=== PATIENT | female | born 1975 | race Caucasian/White ===

== ENCOUNTER 2017-02-16 14:45 | Outpatient (CLI) | payer OTHER | END 2017-02-16 14:46 | disposition home or self-care (01) | LOC: SC 14:45 | PROVIDERS: ATTEND Specialist | DX: G47.30 Sleep apnea, unspecified (principal); R51 Headache; R53.83 Other fatigue; E66.9 Obesity, unspecified; R61 Generalized hyperhidrosis; R06.83 Snoring; G47.00 Insomnia, unspecified | CPT/HCPCS: 99204; 99212 ==

== ENCOUNTER 2017-04-05 19:20 | Outpatient (CLI) | payer OTHER | END 2017-04-05 19:21 | disposition home or self-care (01) | LOC: SC 19:20 | PROVIDERS: ATTEND Specialist | DX: R06.83 Snoring (principal); G47.61 Periodic limb movement disorder | CPT/HCPCS: 95810 ==

== ENCOUNTER 2017-04-21 08:58 | Outpatient (CLI) | payer OTHER | END 2017-04-21 08:59 | disposition home or self-care (01) | LOC: SC 08:58 | PROVIDERS: ATTEND Nurse Practitioner Family | DX: R06.83 Snoring (principal); G47.61 Periodic limb movement disorder; G47.00 Insomnia, unspecified | CPT/HCPCS: 99212; 99214 ==

== ENCOUNTER 2018-03-07 17:34 | Emergency (ER) | payer OTHER ==
--- NOTE | 2018-03-07 18:19 | ED Physician Documentation ---
PD HPI ABD PAIN - Stated complaint Stated Complaint: NAUSEA/AB PX - Chief complaint Chief Complaint: Abd Pain - History obtained from History obtained from: Patient - History of Present Illness Timing - onset: How many hours ago (1), Today Timing - details: Abrupt onset, Now resolved (she was just standing at home and felt an abrupt cramping severa pain in umbilical area that progresses to whole abd, associated with nausea. Unrelented pain so had start driving to ER. She says the pain suddenly improved while enroute. She sayd during the pain, she felt that her known hernia was firm, tender and enlarged and she had not felt it like that before.) Quality: Aching, Fullness/distended, Pain Location: All over / everywhere, Periumbilical Radiation: Lower back. No: Chest Improved by: No: Position Worsened by: Palpation. No: Breathing, Position Associated symptoms: Nausea. No: Fever, Diarrhea Similar symptoms before: Has not had sx before (has had the hernia for awhile but no episodes like this in the past, some time of brief cramps for a minute or so.) Recently seen: Not recently seen Review of Systems Constitutional: denies: Fever, Chills Nose: denies: Rhinorrhea / runny nose, Congestion Throat: denies: Sore throat Respiratory: denies: Cough GI: denies: Constipation : denies: Dysuria PD PAST MEDICAL HISTORY - Past Medical History Cardiovascular: None Respiratory: None Neuro: None GI: Other (known umbilical hernia for months/year or so, without any problems. Had had weight loss and had noticed then at times with lifting or prolonged standing. Mild cramping at times fur minute or so. ) - Past Surgical History Past Surgical History: Yes General: Cholecystectomy /[employer]: section, Breast reduction - Present Medications Home Medications: Ambulatory Orders Medication Instructions Recorded Confirmed Lorazepam [Ativan] 1 mg PO TID PRN #14 tablet 10/29/14 Sumatriptan Succinate [Imitrex] 25 mg PO DAILY PRN #10 tablet 10/29/14 Hydrocodone/Acetaminophen [[place] 1 each PO Q6H PRN #20 tablet 03/27/15 5-325 Tablet] Ondansetron HCl [Zofran] 4 mg PO Q6H PRN #20 tablet 03/27/15 raNITIdine [Zantac] 150 mg PO BID #20 tablet 03/27/15 - Allergies Allergies/Adverse Reactions: Allergies Allergy/AdvReac Type Severity Reaction Status Date / Time No Known Drug Allergies Allergy Verified 03/07/18 17:42 - Social History Does the pt smoke?: No Smoking Status: Former smoker Does the pt drink ETOH?: Yes Does the pt have substance abuse?: No - Immunizations Immunizations are current?: Yes - POLST Patient has POLST: No PD ED PE NORMAL - Vitals Vital signs reviewed: Yes - General General: Alert and oriented X 3, No acute distress, Well developed/nourished - Cardiac Cardiac: RRR, No murmur - Respiratory Respiratory: Clear bilaterally - Abdomen Abdomen: Normal bowel sounds, Soft, Non tender, Non distended, No organomegaly, Other (palpable soft umbilical hernia with mild local tenderness. Easily reducible. This is different than it felt during the pain, according to the patient. ) Results - Vitals Vitals: Oxygen O2 Source Room air PD MEDICAL DECISION MAKING - ED course Complexity details: considered differential (sounds like it was incarcerated hernia that reduced itself while enroute here. Feeling okay now. Discussed treatment to try if recurs. ), d/w patient Departure - Departure Disposition: 01 Home, Self Care Clinical Impression: Umbilical hernia, incarcerated Abdominal pain Qualifiers: Abdominal location: periumbilical Qualified Code(s): R10.33 - Periumbilical pain Condition: Stable Record reviewed to determine appropriate education?: Yes Instructions: ED Hernia Inguinal Follow-Up: RADHA BELTRAN MD [Primary Care Provider] - Comments: No particular treatment at this time. Make sure you have good easy bowel movements and use stool softener if you are at all constipated. Avoid heavy lifting may be for a day or 2. Otherwise normal activity after that. Follow-up with your primary care however and surgeon regarding repair of the umbilical hernia since that has had an episode of incarceration like this. If you have recurrent episode, rest to lie down with gentle pressure on the abdomen and see if it will reduce and come to the ER if it does not. Discharge Date/Time: 03/07/18 18:59
[2018-03-07 18:58] VITALS: BP 116/68
== END 2018-03-07 18:59 | disposition home or self-care (01) ==
LOC: ED 17:34
DX: K42.9 Umbilical hernia without obstruction or gangrene (principal); Z87.891 Personal history of nicotine dependence
CPT/HCPCS: 99282; 99283

== ENCOUNTER 2018-05-06 06:13 | Day surgery (SDC) | payer OTHER ==
[2018-05-06] MEDS ORDERED: LACTATED RINGERS 1,000 ML IV ONE ×2 (06:23→09:10)
[2018-05-06 06:45] LABS: HCG UR QUAL NEGATIVE
[2018-05-06] MEDS ORDERED: ceFAZolin 2 GM/50 ML 2 GM/50 ML BAG IV ONE (06:49)
[2018-05-06] MEDS ORDERED: BUPIVACAINE 0.5% PF 30 ML VIAL ONE (06:59)
--- NOTE | 2018-05-06 07:10 | ANESTHESIA ---
Pre-Anesthesia VS, & Labs - Diagnosis umbilical hernia - Procedure Umbilical hernia repair with mesh Vital Signs: Temp Pulse Resp BP Pulse Ox 36.6 C 75 16 128/73 98 05/06/18 06:39 05/06/18 06:39 05/06/18 06:39 05/06/18 06:39 05/06/18 06:39 Height 5 ft 7 in Weight (kg) 100 kg Body Mass Index 33.1 - NPO >8 hours - Is Patient ?: No Home Medications and Allergies Home Medications: Ambulatory Orders Alavert 1 tab PO DAILY 05/02/18 Alavert 1 tab PO DAILY 05/02/18 Allergies/Adverse Reactions: Allergies Allergy/AdvReac Type Severity Reaction Status Date / Time No Known Drug Allergies Allergy Verified 03/07/18 17:42 Anes History & Medical History - Anesthetic History Anesthesia Complications: reports: No previous complications - Medical History Cardiovascular: reports: None Pulmonary: reports: Asthma Gastrointestinal: reports: GERD, Other Urinary: reports: None Neuro: reports: None Musculoskeletal: reports: None Endocrine/Autoimmune: reports: None Blood Disorders: reports: None Skin: reports: None Smoking Status: Former smoker - Surgical History General: Cholecystectomy Gynecologic: section, Breast reduction Exam General: Alert, Oriented x3 Dental: WNL Mouth Opening: Greater than 4 Fingerbreadths Mallampati classification: II Thyromental Distance: greater than 6 cm Respiratory: Lungs clear Cardiovascular: Regular rate, Normal S1, Normal S2 Plan Anesthesia Type: General Consent for Procedure(s) Verified and Reviewed: Yes Code Status: Attempt Resuscitation ASA classification: 2-Mild systemic disease Is this case an emergency?: No
[2018-05-06] MEDS ORDERED: HEPARIN 5,000 UNIT/ML VIAL ONE (07:13)
[2018-05-06] MEDS ORDERED: BUPIVACAINE 0.5% PF 30 ML VIAL INFIL ONE ×2 (07:34)
[2018-05-06] MEDS ORDERED: ONDANSETRON 4 MG/2 ML VIAL IVP ONE (08:00)
[2018-05-06] MEDS ORDERED: NEOSTIGMINE 1 MG/1 ML 10 ML MDV IVP ONE (08:00)
[2018-05-06] MEDS ORDERED: ROCURONIUM 50 MG/5 ML VIAL IVP ONE (08:00)
[2018-05-06] MEDS ORDERED: MIDAZOLAM 2 MG/2 ML VIAL IVP ONE (08:00)
[2018-05-06] MEDS ORDERED: ACETAMINOPHEN 1,000 MG/100 ML 100 ML IV ONE (08:00)
[2018-05-06] MEDS ORDERED: PROPOFOL 200 MG/20 ML VIAL IVP ONE (08:00)
[2018-05-06] MEDS ORDERED: GLYCOPYRROLATE 1 MG/5 ML VIAL IVP ONE (08:00)
[2018-05-06] MEDS ORDERED: DEXAMETHASONE 4 MG/ML VIAL IVP ONE (08:00)
[2018-05-06] MEDS ORDERED: LIDOCAINE-MPF 2% 5 ML VIAL IM ONE (08:00)
[2018-05-06] MEDS ORDERED: HYDROcod/ACETAM 5/325 MG TABLET PO PRN (08:52)
--- NOTE | 2018-05-06 08:56 | IMMEDIATE POSTOPERATIVE NOTE ---
Immediate Postoperative Note - Procedure Note Procedure Date: 05/06/18 Pre-Op Diagnosis: umbilical hernia Procedure: open umbilical hernia repair with mesh Post-Op Diagnosis: same Primary Surgeon: rayo Anesthesia Type: General ET tube Complications: No complications Estimated Blood Loss (in cc): 20 Plan of Care: discharge home
[2018-05-06] MEDS: fentaNYL 100 MCG/2 ML VIAL ONE ×2 (09:08→09:15)
--- NOTE | 2018-05-06 09:24 | OPERATIVE REPORT ---
DATE OF SERVICE: 05/06/2018 Physician: Jam Kenney MD SURGEON: Jam Kenney MD. PREOPERATIVE DIAGNOSIS: Umbilical hernia. POSTOPERATIVE DIAGNOSIS: Umbilical hernia. PROCEDURE PERFORMED: Open umbilical hernia repair with mesh. DESCRIPTION OF PROCEDURE: The patient is a 40-year-old woman who presented to the clinic complaining of a symptomatic umbilical hernia, requesting repair. DESCRIPTION OF PROCEDURE IN DETAIL: The risks and benefits were explained to the patient. She agreed to the procedure. She received 5000 units of heparin subcutaneously in the preop area for DVT prophylaxis due to her weight, and was taken to the operating room and placed under general anesthesia and intubated, and was prepped and draped. Time-out was performed. Everyone in the room agreed to the procedure. We began by making a 4-5 cm longitudinal incision over the hernia on the superior side of the umbilicus. This was carried down to expose the hernia sac. The hernia sac was dissected circumferentially. It was then excised flush with the fascial ring. The defect was about 3 cm in diameter. A medium sized hernia patch was placed inside the defect and secured in place using PDS. A finger was inserted in between the fascia and the hernia patch to ensure there was no trapped tissue. The fascia was then closed using a 0 Prolene stitch. There was a small amount of residual bleeding from the cut peritoneum; however, this stopped after placing the Prolene [id number]. The subcutaneous tissue and skin were then closed in two layers with Vicryl underneath Monocryl. A dressing of gauze and Tegaderm was then applied. This terminated the procedure. The patient tolerated the procedure well. She was taken to recovery in stable condition. INSTRUMENT/LAP COUNTS: Correct. ESTIMATED BLOOD LOSS: 20 mL. COMPLICATIONS: None. SPECIMENS: None. PLANS: Plans were for her to be discharged later today. TD: 05/06/2018 09:05 SAIMA
[2018-05-06] MEDS ORDERED: HYDROcod/ACETAM 5/325 MG TABLET ONE (09:49)
[2018-05-06 09:53] VITALS: BP 110/56
[2018-05-06] MEDS ORDERED: BUPIVACAINE 0.5% PF 10 ML VIAL ONE (10:34)
== END 2018-05-06 06:14 | disposition home or self-care (01) ==
LOC: SDS 06:13
PROVIDERS: ATTEND Surgery
PROC: 0WUF0JZ Supplement Abdominal Wall with Synthetic Substitute, Open Approach (ICD-10-PCS; principal; 2018-05-06 07:30)
DX: K42.9 Umbilical hernia without obstruction or gangrene (principal); J45.909 Unspecified asthma, uncomplicated; F17.210 Nicotine dependence, cigarettes, uncomplicated
CPT/HCPCS: 49585; 81025; A9270; C1781; J0131; J0690; J7120

== ENCOUNTER 2020-07-11 08:32 | Outpatient (CLI) | payer OTHER ==
--- NOTE | 2020-07-12 08:54 | Ultrasound Report ---
LIMITED ULTRASOUND OF RIGHT BREAST: 07/11/2020 CLINICAL: Palpable right breast lump. Comparison is made to exams dated: 07/11/2020 mammogram - [facility], 09/14/2016 [facility], and 09/14/2016 mammogram - [facility]. Color flow and real-time ultrasound of the right breast 7-8 o'clock region were performed on the area s of interest. There is an oval area of fibroglandular tissue with indistinct margins in the right breast at 8 o'saturnino ck middle depth. This oval area of fibroglandular tissue is of mixed echogenicity with internal ill- defined hyperechoic linear regions suggestive of postsurgical scarring. This correlates as palpated and is in the region of prior surgery. Color flow imaging demonstrates that there is no increase in vascularity. IMPRESSION: PROBABLY BENIGN The oval area of fibroglandular tissue in the right breast in the area of palpable abnormality likely represents post-surgical changes and is probably benign. The findings are not characteristic of fat necrosis on ultrasound of mammography. Given patient's reported history of progressive increase in si ze, a follow-up mammogram and ultrasound in 6 months are recommended. Follow up is also recommended c linically. If clinical concern persists, further evaluation may also be obtained with MRI if clinical ly indicated. A follow-up mammogram and an ultrasound in 6 months are recommended to demonstrate stability. This exam was interpreted at Station ID: [id number]. Electronically Signed By: Mando Guthrie M.D. ddp/:07/11/2020 10:31:22 Ultrasound BI-RADS: 3 Probably benign BI-RADS CATEGORY: (3) - 3 Mammo and US [id number] 6 month follow-up LATERALITY: (B)
--- NOTE | 2020-07-12 08:54 | Mammography Report ---
BILATERAL DIGITAL DIAGNOSTIC MAMMOGRAM 3D/2D: 07/11/2020 CLINICAL: Palpable right breast lump. Comparison is made to exam dated: 09/14/2016 mammogram - [facility]. There are scatte red fibroglandular elements in both breasts. No significant masses, calcifications, or other findings are seen in either breast. IMPRESSION: INCOMPLETE: NEEDS ADDITIONAL IMAGING EVALUATION There is no abnormality seen in the right breast to correspond with the palpable abnormality in the l er outer quadrant, however, ultrasound is recommended. Ultrasound will be performed immediately following the current exam. This exam was interpreted at Station ID: [id number]. NOTE: For mammograms, a report in lay terms will be sent to the patient. Approximately 15% of breast malignancies will not be visualized mammographically. In the management of a palpable breast mass, a negative mammogram must not discourage biopsy of a clinically suspicious lesion. Electronically Signed By: Mando Guthrie M.D. ddp/:07/11/2020 09:19:07 ACR BI-RADS Category 0: Incomplete 3340F PARENCHYMAL PATTERN: (A) - The breast(s) demonstrate(s) scattered fibroglandular densities. BI-RADS CATEGORY: (0) - 0 Ultrasound [id number] Immediate follow-up LATERALITY: (B)
== END 2020-07-11 08:33 | disposition home or self-care (01) ==
LOC: DI 08:32
PROVIDERS: ATTEND Nurse Practitioner Family
DX: N63.15 Unspecified lump in the right breast, overlapping quadrants (principal)